=== PATIENT | male | born 1990 | race Hispanic/Latino ===

== ENCOUNTER 2022-03-01 21:57 | Emergency (ER) | payer OTHER ==
[~2022-03-01] VITALS: Ht 167.6 cm; Wt 68.0 kg
[2022-03-01] MEDS ORDERED: Morphine 4mg INJECTION 4 MG/ML INJ IV STA (22:34)
[2022-03-01] MEDS ORDERED: SODIUM CHLORIDE 0.9% 1000ML 1,000 ML IV STA (22:34)
[2022-03-01] MEDS ORDERED: ONDANSETRON HCL INJ 2MG/ML 2ML 2 MG/ML VIAL IV STA (22:34)
[2022-03-01 22:50] LABS: BASOPHILS % 0.3 % (0.0-1.0); EOSINOPHILS # (AUTO) 0.1 (0.0-0.4); EOSINOPHILS % 1.7 % (0.0-6.0); HEMATOCRIT 44.3 % (38.2-49.6); HEMOGLOBIN 14.7 g/dL (14.0-18.0); LYMPHOCYTES # (AUTO) 2.2 (1.0-3.2); MEAN CORPUSCULAR HGB CONC 33.2 g/dL (31-35); MEAN CORPUSCULAR VOLUME 90.4 fL (81-99); MONOCYTES # (AUTO) 0.6 (0.2-0.8); MONOCYTES % 9.9 % (4.4-11.3); NEUTROPHILS # (AUTO) 3.2 (2.1-6.9); NEUTROPHILS % 51.9 % (38.7-80.0); PLATELET COUNT 182 x10e3/uL (140-360)
[2022-03-01] MEDS ORDERED: DIATRIZOATE MEGL/DIATRIZOA SOD 30 ML BTL PO ONE (23:07)
[2022-03-01 23:08] LABS: ALBUMIN 4.1 g/dL (3.5-5.0); ALBUMIN/GLOBULIN RATIO 1.1 (0.8-2.0); ANION GAP 14.3 mmol/L (8-16); CALCIUM 9.1 mg/dL (8.4-10.2); CREATININE, SERUM 0.85 mg/dL (0.72-1.25); POTASSIUM 4.3 mmol/L (3.5-5.1)
[2022-03-01 23:47] LABS: CLARITY,URINE CLEAR (CLEAR); COLOR,URINE YELLOW (YELLOW); KETONES,URINE NEGATIVE (NEGATIVE); LEUKOCYTE ESTERASE ,URINE NEGATIVE (NEGATIVE); NITRITE,URINE NEGATIVE (NEGATIVE); PROTEIN,URINE DIPSTICK NEGATIVE (NEGATIVE); URINE UROBILINOGEN 0.2 mg/dL (0.2 - 1)
[2022-03-02] MEDS ORDERED: IOPAMIDOL 370 MG/ML 100 ML INFUS..BTL INJ ONE (00:30)
[2022-03-02] MEDS ORDERED: ONDANSETRON ODT4 MG PO (01:14)
[2022-03-02] MEDS ORDERED: ACETAMINOPHEN-1 EAC4 PO (01:14)
== END 2022-03-02 03:37 | disposition home or self-care (01) ==
LOC: ER 22:11
DX: R19.03 Right lower quadrant abdominal swelling, mass and lump (principal); R68.83 Chills (without fever); R11.0 Nausea
CPT/HCPCS: 36415; 74177; 80053; 81001; 83690; 85025; 99283; J2270; J2405; J7030; Q9967